=== PATIENT | male | born 1945 | race Two or more races ===

== ENCOUNTER 2021-10-04 09:23 | Inpatient (IN) | payer MEDICARE, MEDICAID ==
[~2021-10-04] VITALS: Ht 170.2 cm; Wt 61.5 kg
[~2021-10-04 09:23] MED LIST: FUR40T GT; GLIP5TAB12 PO; INSLANTI SC; INSUINJ49 SC; SIMV80TA73 PO
[2021-10-04] MEDS ORDERED: DEXTROSE 50% SYRINGE 50 ML IV ONE (09:42)
[2021-10-04] MEDS ORDERED: DEXTROSE (50%) 50ML SYRG IV ONE ×3 (09:45→15:45)
[2021-10-04 10:43] LABS: Basophils # (auto) 0.1 10 ^3/uL (0-0.2); Basophils % (auto) 0.8 % (0.0-2.0); Eosinophils # (auto) 0.4 10 ^3/uL (0-0.8); Eosinophils % (auto) 4.2 % (0.0-7.0); Hematocrit 27.6 % (41.0-53.0); Lymphocytes # (auto) 0.5 10 ^3/uL (0.4-5.4); Lymphocytes % (auto) 5.3 % (10.0-50.0); Mean Corpuscular Hemoglobin 29.4 pg (28.0-32.0); Mean Corpuscular Hgb Conc. 32.6 g/dL (32.0-36.0); Mean Corpuscular Volume 90.1 fL (80.0-100.0); Monocytes # (auto) 0.7 10 ^3/uL (0-1.3); Monocytes % (auto) 7.7 % (0.0-12.0); Red Blood Cells 3.06 10^6/uL (4.5-5.90); White Blood Cell 9.7 10^3/uL (4.4-10.8)
[2021-10-04 10:56] LABS: INR 1.11 (0.9-1.15)
[2021-10-04 11:45] LABS: Potassium 3.4 mmol/L (3.5-5.1)
[2021-10-04] MEDS ORDERED: LABETALOL HCL 5 MG/ML 4ML SYRINGE IV ONE ×2 (11:45→15:45)
[2021-10-04] MEDS ORDERED: DEXTROSE 10% 1,000 ML IV ONE (11:45)
[2021-10-04 11:51] LABS: Albumin 2.8 g/dL (3.4-5.0); BUN/Creatinine Ratio 8.8; Bilirubin, Total 0.4 mg/dL (0.2-1.0); Calcium 8.3 mg/dL (8.5-10.1); Total Protein 7.4 g/dL (6.4-8.2)
[2021-10-04] MEDS ORDERED: cefTRIAXone SOD 500 MG VL IV ONE (15:45)
[2021-10-04] MEDS ORDERED: DEXTROSE 10% 1,000 ML IV SCH (15:45)
[2021-10-04] MEDS ORDERED: MORPHINE SULFATE INJECTION 2 MG/ML SYRG IV PRN (18:45)
[2021-10-04] MEDS ORDERED: NITROGLYCERIN 0.4 MG SL TAB SL PRN (18:45)
[2021-10-04] MEDS ORDERED: hydrALAZINE HCL 20 MG/ML VL IV PRN (20:30)
[2021-10-04] MEDS ORDERED: ENALAPRILAT 1.25 MG/ML-1ML VIAL IV PRN (21:45)
[2021-10-05] VITALS (7 sets, daily range): BP systolic 140–193; BP diastolic 77–101
[2021-10-05] MEDS ORDERED: LABETALOL HCL 5 MG/ML 4ML SYRINGE IV ONE ×2 (01:09→01:15)
[2021-10-05] MEDS ORDERED: LABETALOL HCL 5 MG/ML 4ML SYRINGE IV PRN ×2 (01:15→05:30)
[2021-10-05] MEDS ORDERED: PANTOPRAZOLE 40 MG/10 ML VIAL INJ IV ONE ×2 (01:30→13:15)
[2021-10-05] MEDS ORDERED: MORPHINE SULFATE INJECTION 2 MG/ML SYRG IV PRN ×2 (05:30→13:15)
[2021-10-05] MEDS ORDERED: hydrALAZINE HCL 20 MG/ML VL IV PRN (05:30)
[2021-10-05] MEDS ORDERED: DEXTROSE 10% 1,000 ML IV SCH (05:30)
[2021-10-05] MEDS ORDERED: ENALAPRILAT 1.25 MG/ML-1ML VIAL IV PRN (05:30)
[2021-10-05] MEDS ORDERED: NITROGLYCERIN 0.4 MG SL TAB SL PRN (05:30)
[2021-10-05] MEDS ORDERED: ENOXAPARIN SOD 30 MG/0.3 ML SYRINGE SC SCH (10:00)
[2021-10-05] MEDS ORDERED: NIFEdipine ER 30 MG TAB PO SCH (10:00)
[2021-10-05] MEDS: ENOXAPARIN SOD 30 MG/0.3 ML SYRINGE SC SCH (10:21)
[2021-10-05] MEDS: NIFEdipine ER 30 MG TAB PO SCH (10:21)
[2021-10-05] MEDS ORDERED: ONDANSETRON HCL 4 MG/2 ML VIAL IV PRN (13:15)
[2021-10-05] MEDS ORDERED: DEXTROSE (50%) 50ML SYRG IV PRN (13:15)
[2021-10-05] MEDS ORDERED: METOPROLOL TARTRATE 25 MG TAB PO ONE (13:15)
[2021-10-05] MEDS ORDERED: traMADol HCL 50 MG TAB PO PRN (13:15)
[2021-10-05] MEDS: ACCU-CHEK COMFORT CURVE STRIP VI SCH ×2 (16:00→20:24)
[2021-10-05] MEDS ORDERED: FAMO-12 PO (16:15)
[2021-10-05] MEDS ORDERED: SUCR1TAB22 OR (16:17)
[2021-10-05] MEDS ORDERED: GABA250S2 PO (16:17)
[2021-10-05] MEDS ORDERED: TRAZ-181 PO (16:17)
[2021-10-05] MEDS ORDERED: ASPI-543 PO (16:18)
[2021-10-05] MEDS ORDERED: LEVO25TA6 PO (16:18)
[2021-10-05] MEDS ORDERED: FINA5TAB4 PO (16:18)
[2021-10-05] MEDS ORDERED: TAMS1CAP25 PO (16:20)
[2021-10-05] MEDS ORDERED: LEVE500T32 PO (16:20)
[2021-10-05] MEDS ORDERED: CINA30TA2 PO (16:20)
[2021-10-05] MEDS ORDERED: B-COTAB10 OR (16:22)
[2021-10-05] MEDS ORDERED: SERT50TA19 PO (16:23)
[2021-10-05] MEDS ORDERED: CARV12.544 PO (16:26)
[2021-10-05] MEDS ORDERED: CLON0.2D6 TD (16:26)
[2021-10-05] MEDS: Nepro With Carbsteady ButterPecan 8oz Carton PO SCH (18:00)
[2021-10-05] MEDS ORDERED: TEMAZEPAM 15 MG CAP PO ONE (21:45)
[2021-10-05] MEDS: METOPROLOL TARTRATE 25 MG TAB PO SCH (23:52)
[2021-10-06] MEDS: ACCU-CHEK COMFORT CURVE STRIP VI SCH ×6 (04:00→19:46)
[2021-10-06] MEDS ORDERED: cloNIDine HCL 0.1 MG TAB PO PRN ×2 (05:00→05:45)
[2021-10-06 05:30] VITALS: BP 155/82
[2021-10-06 06:31] LABS: Basophils # (auto) 0 10 ^3/uL (0-0.2); Basophils % (auto) 0.6 % (0.0-2.0); Eosinophils # (auto) 0.2 10 ^3/uL (0-0.8); Eosinophils % (auto) 3.9 % (0.0-7.0); Hematocrit 27.7 % (41.0-53.0); Hemoglobin 9.4 g/dL (13.5-17.5); Lymphocytes # (auto) 0.8 10 ^3/uL (0.4-5.4); Lymphocytes % (auto) 12.9 % (10.0-50.0); Mean Corpuscular Hemoglobin 30.1 pg (28.0-32.0); Mean Corpuscular Hgb Conc. 33.8 g/dL (32.0-36.0); Mean Corpuscular Volume 89.2 fL (80.0-100.0); Monocytes # (auto) 0.8 10 ^3/uL (0-1.3); Monocytes % (auto) 12.8 % (0.0-12.0); Neutrophils # (auto) 4.2 10 ^3/uL (1.6-8.6); Neutrophils % (auto) 69.8 % (37.0-80.0); Red Blood Cells 3.11 10^6/uL (4.5-5.90)
[2021-10-06 06:39] LABS: Calcium 8.5 mg/dL (8.5-10.1); Potassium 4.6 mmol/L (3.5-5.1)
[2021-10-06 06:45] LABS: Albumin 3.1 g/dL (3.4-5.0); BUN/Creatinine Ratio 8.9; Bilirubin, Total 0.5 mg/dL (0.2-1.0); Total Protein 7.1 g/dL (6.4-8.2)
[2021-10-06] MEDS: Nepro With Carbsteady ButterPecan 8oz Carton PO SCH ×3 (08:00→18:00)
[2021-10-06 08:08] VITALS: BP 161/97
[2021-10-06] MEDS: METOPROLOL TARTRATE 25 MG TAB PO SCH (08:38)
[2021-10-06] MEDS: NIFEdipine ER 30 MG TAB PO SCH (08:41)
[2021-10-06] MEDS: ENOXAPARIN SOD 30 MG/0.3 ML SYRINGE SC SCH (08:41)
[2021-10-06] MEDS: PANTOPRAZOLE 40 MG/10 ML VIAL INJ IV SCH (08:42)
[2021-10-06] MEDS: traMADol HCL 50 MG TAB PO PRN ×2 (08:42→22:57)
[2021-10-06] MEDS ORDERED: cloNIDine 0.2 mg/24hr 7DAY PATCH TD SCH (10:00)
[2021-10-06] MEDS ORDERED: cloNIDine 0.2 mg/24hr 7DAY PATCH TD ONE (10:00)
[2021-10-06] MEDS: ASPirin 81 mg TAB PO SCH (12:38)
[2021-10-06] MEDS: CARVEDILOL 12.5 MG TAB PO SCH ×2 (12:38→22:48)
[2021-10-06] MEDS: levETIRAcetam 500 MG TAB PO SCH ×2 (12:39→22:48)
[2021-10-06] MEDS: B-COMPLEX W/ C & FOLIC ACID(NEPHROVITE TAB) PO SCH (12:39)
[2021-10-06] MEDS: FINASTERIDE 5 MG TAB PO SCH (12:39)
[2021-10-06] MEDS: SERTRALINE HCL 50 MG TAB PO SCH (12:39)
[2021-10-06 13:00] VITALS: BP 181/101
[2021-10-06] MEDS ORDERED: HEPARIN SODIUM (PORCINE) 5000 UNITS/ML 1ML VIAL IV ONE (14:30)
[2021-10-06 17:13] VITALS: BP 156/64
[2021-10-06] MEDS: TAMSULOSIN HYDROCHLORIDE 0.4 MG CAP PO SCH (18:16)
[2021-10-06 22:00] VITALS: BP 149/80
[2021-10-06] MEDS: ATORVASTATIN 20 MG TAB PO SCH (22:49)
[2021-10-07] MEDS: ACCU-CHEK COMFORT CURVE STRIP VI SCH ×6 (00:41→20:00)
[2021-10-07 05:00] VITALS: BP 157/80
[2021-10-07] MEDS ORDERED: SODIUM CHL 0.9% 1000 ML BAG XX ONE (07:00)
[2021-10-07 08:00] VITALS: BP 169/86
[2021-10-07] MEDS: Nepro With Carbsteady ButterPecan 8oz Carton PO SCH ×3 (08:10→18:00)
[2021-10-07] MEDS: PANTOPRAZOLE 40 MG/10 ML VIAL INJ IV SCH (08:10)
[2021-10-07] MEDS: CARVEDILOL 12.5 MG TAB PO SCH ×2 (08:10→22:16)
[2021-10-07] MEDS: ASPirin 81 mg TAB PO SCH (08:10)
[2021-10-07] MEDS: FINASTERIDE 5 MG TAB PO SCH (08:11)
[2021-10-07] MEDS: levETIRAcetam 500 MG TAB PO SCH ×2 (08:11→22:17)
[2021-10-07] MEDS: SERTRALINE HCL 50 MG TAB PO SCH (08:11)
[2021-10-07] MEDS: B-COMPLEX W/ C & FOLIC ACID(NEPHROVITE TAB) PO SCH (08:11)
[2021-10-07] MEDS: ENOXAPARIN SOD 30 MG/0.3 ML SYRINGE SC SCH (08:11)
[2021-10-07 09:54] LABS: Hematocrit 29.8 % (41.0-53.0); Hemoglobin 9.7 g/dL (13.5-17.5)
[2021-10-07 12:00] VITALS: BP 173/90
[2021-10-07 16:00] VITALS: BP 179/93
[2021-10-07] MEDS: TAMSULOSIN HYDROCHLORIDE 0.4 MG CAP PO SCH (17:02)
[2021-10-07] MEDS: traMADol HCL 50 MG TAB PO PRN (17:03)
[2021-10-07] MEDS ORDERED: EPOETIN ALFA-EPBX 10,000 UNIT/1ML VIAL SC ONE (21:00)
[2021-10-07 22:00] VITALS: BP 191/97
[2021-10-07] MEDS: ATORVASTATIN 20 MG TAB PO SCH (22:17)
[2021-10-08] MEDS: ACCU-CHEK COMFORT CURVE STRIP VI SCH ×6 (00:15→20:53)
[2021-10-08] MEDS: traMADol HCL 50 MG TAB PO PRN (01:19)
[2021-10-08 08:00] VITALS: BP 158/74
[2021-10-08 09:00] VITALS: BP 195/99
[2021-10-08] MEDS: Nepro With Carbsteady ButterPecan 8oz Carton PO SCH ×3 (10:01→18:20)
[2021-10-08] MEDS: PANTOPRAZOLE 40 MG/10 ML VIAL INJ IV SCH (10:02)
[2021-10-08] MEDS: ASPirin 81 mg TAB PO SCH (10:02)
[2021-10-08] MEDS: CARVEDILOL 12.5 MG TAB PO SCH ×2 (10:05→20:54)
[2021-10-08] MEDS: SERTRALINE HCL 50 MG TAB PO SCH (10:06)
[2021-10-08] MEDS: FINASTERIDE 5 MG TAB PO SCH (10:06)
[2021-10-08] MEDS: B-COMPLEX W/ C & FOLIC ACID(NEPHROVITE TAB) PO SCH (10:06)
[2021-10-08] MEDS: levETIRAcetam 500 MG TAB PO SCH ×2 (10:06→20:55)
[2021-10-08] MEDS: ENOXAPARIN SOD 30 MG/0.3 ML SYRINGE SC SCH (10:06)
[2021-10-08] MEDS ORDERED: hydrALAZINE HCL 20 MG/ML VL IV PRN (12:00)
[2021-10-08] MEDS ORDERED: NIFEdipine ER 30 MG TAB PO ONE (12:00)
[2021-10-08 12:43] VITALS: BP 144/70
[2021-10-08] MEDS ORDERED: LORazepam 0.5 MG TAB PO PRN (13:00)
[2021-10-08 17:00] VITALS: BP 191/94
[2021-10-08] MEDS: TAMSULOSIN HYDROCHLORIDE 0.4 MG CAP PO SCH (18:23)
[2021-10-08] MEDS: SACUBITRIL-VALSARTAN 24mg/26mg TAB PO SCH (20:54)
[2021-10-08] MEDS: ATORVASTATIN 20 MG TAB PO SCH (20:55)
[2021-10-08 21:09] VITALS: BP 173/82
[2021-10-09] VITALS (8 sets, daily range): BP systolic 119–174; BP diastolic 57–76
[2021-10-09] MEDS: ACCU-CHEK COMFORT CURVE STRIP VI SCH ×7 (04:42→23:36)
[2021-10-09] MEDS ORDERED: hydrALAZINE HCL 10 MG TAB PO PRN (05:15)
[2021-10-09] MEDS: NIFEdipine ER 30 MG TAB PO SCH (05:26)
[2021-10-09] MEDS: Nepro With Carbsteady ButterPecan 8oz Carton PO SCH ×3 (08:23→18:19)
[2021-10-09] MEDS: SACUBITRIL-VALSARTAN 24mg/26mg TAB PO SCH ×2 (10:00→21:40)
[2021-10-09] MEDS: PANTOPRAZOLE 40 MG/10 ML VIAL INJ IV SCH (10:16)
[2021-10-09] MEDS: ASPirin 81 mg TAB PO SCH (10:16)
[2021-10-09] MEDS: B-COMPLEX W/ C & FOLIC ACID(NEPHROVITE TAB) PO SCH (10:17)
[2021-10-09] MEDS: CARVEDILOL 12.5 MG TAB PO SCH ×2 (10:17→21:40)
[2021-10-09] MEDS: levETIRAcetam 500 MG TAB PO SCH ×2 (10:17→21:40)
[2021-10-09] MEDS: ENOXAPARIN SOD 30 MG/0.3 ML SYRINGE SC SCH (10:18)
[2021-10-09] MEDS: FINASTERIDE 5 MG TAB PO SCH (10:18)
[2021-10-09] MEDS: SERTRALINE HCL 50 MG TAB PO SCH (10:18)
[2021-10-09] MEDS: hydrALAZINE HCL 25 MG TAB PO SCH ×2 (14:00→21:41)
[2021-10-09] MEDS: TAMSULOSIN HYDROCHLORIDE 0.4 MG CAP PO SCH (18:00)
[2021-10-09] MEDS: ATORVASTATIN 20 MG TAB PO SCH (21:40)
[2021-10-10] MEDS: traMADol HCL 50 MG TAB PO PRN ×2 (01:31→12:06)
[2021-10-10] MEDS: ACCU-CHEK COMFORT CURVE STRIP VI SCH ×3 (04:09→12:06)
[2021-10-10 05:07] VITALS: BP 127/70
[2021-10-10] MEDS: hydrALAZINE HCL 25 MG TAB PO SCH ×2 (05:39→14:00)
[2021-10-10 07:55] VITALS: BP 145/79
[2021-10-10] MEDS: Nepro With Carbsteady ButterPecan 8oz Carton PO SCH ×2 (11:10→12:06)
[2021-10-10] MEDS: PANTOPRAZOLE 40 MG/10 ML VIAL INJ IV SCH (11:11)
[2021-10-10] MEDS: CARVEDILOL 12.5 MG TAB PO SCH (11:11)
[2021-10-10] MEDS: SACUBITRIL-VALSARTAN 24mg/26mg TAB PO SCH (11:11)
[2021-10-10] MEDS: ASPirin 81 mg TAB PO SCH (11:11)
[2021-10-10] MEDS: NIFEdipine ER 30 MG TAB PO SCH (11:12)
[2021-10-10] MEDS: B-COMPLEX W/ C & FOLIC ACID(NEPHROVITE TAB) PO SCH (11:12)
[2021-10-10] MEDS: FINASTERIDE 5 MG TAB PO SCH (11:12)
[2021-10-10] MEDS: levETIRAcetam 500 MG TAB PO SCH (11:12)
[2021-10-10] MEDS: SERTRALINE HCL 50 MG TAB PO SCH (11:13)
[2021-10-10] MEDS: ENOXAPARIN SOD 30 MG/0.3 ML SYRINGE SC SCH (11:13)
[2021-10-10 12:00] VITALS: BP 140/69
== END 2021-10-10 17:32 | disposition home health service (06) | DRG 291 ==
LOC: EDBD 09:23 → ER 09:23 → WEST WING 18:43 → ER 10-05 02:20
PROVIDERS: ADMIT Nurse Practitioner Family; ATTEND Internal Medicine
PROC: 5A1D70Z Performance of Urinary Filtration, Intermittent, Less than 6 Hours Per Day (ICD-10-PCS; 2021-10-06)
PROC: 5A1D70Z Performance of Urinary Filtration, Intermittent, Less than 6 Hours Per Day (ICD-10-PCS; 2021-10-08)
PROC: 4B02XSZ Measurement of Cardiac Pacemaker, External Approach (ICD-10-PCS; 2021-10-08)
PROC: 5A1D70Z Performance of Urinary Filtration, Intermittent, Less than 6 Hours Per Day (ICD-10-PCS; principal; 2021-10-10)
DX: I13.2 Hypertensive heart and chronic kidney disease with heart failure and with stage 5 chronic kidney disease, or end stage renal disease (principal); G93.41 Metabolic encephalopathy; I50.43 Acute on chronic combined systolic (congestive) and diastolic (congestive) heart failure; N18.6 End stage renal disease; R18.8 Other ascites; E11.649 Type 2 diabetes mellitus with hypoglycemia without coma; D63.1 Anemia in chronic kidney disease; I16.0 Hypertensive urgency; E11.22 Type 2 diabetes mellitus with diabetic chronic kidney disease; E11.51 Type 2 diabetes mellitus with diabetic peripheral angiopathy without gangrene; E11.65 Type 2 diabetes mellitus with hyperglycemia; F32.A Depression, unspecified; G40.909 Epilepsy, unspecified, not intractable, without status epilepticus; I27.20 Pulmonary hypertension, unspecified; N40.0 Benign prostatic hyperplasia without lower urinary tract symptoms; Z20.822 Contact with and (suspected) exposure to COVID-19; Z79.4 Long term (current) use of insulin; Z79.899 Other long term (current) drug therapy; Z82.49 Family history of ischemic heart disease and other diseases of the circulatory system; Z87.891 Personal history of nicotine dependence; Z95.0 Presence of cardiac pacemaker; Z99.2 Dependence on renal dialysis
CPT/HCPCS: 36415; 70450; 71045; 74176; 80053; 82962; 83036; 83690; 84443; 85014; 85018; 85025; 85610; 85730; 87081; 87340; 87426; 90935; 93005; 93306; 96361; 96374; 96375; 96376; 99291; C9113; G0378; J0696; J3490